=== PATIENT | female | born 1980 | race Caucasian/White ===

== ENCOUNTER 2016-06-22 15:00 | Inpatient (IN) | payer MEDICAID, OTHER ==
[~2016-06-22] VITALS: Ht 160 cm; Wt 91.8 kg
[~2016-06-22 15:00] MED LIST: ARIP10TA14 PO; FLUR15CA14 PO; LURA40 PO; TOPI100 PO
[2016-06-22] MEDS ORDERED: DOXE10 PO (15:13)
[2016-06-22 16:51] LABS: BASOPHILS % (AUTO) 0.5 % (0.0-2.0); EOSINOPHILS % (AUTO) 0.1 % (1.0-6.0); HEMATOCRIT 41.1 % (36-46); LYMPHOCYTES # (AUTO) 1.7 K/uL (1.0-4.8); LYMPHOCYTES % (AUTO) 15.9 % (22.0-44.0); MEAN CORPUSCULAR HEMOGLOBIN 24.5 pg (26.0-34.0); MEAN CORPUSCULAR HGB CONC 31.7 G/dL (31.0-37.0); MEAN CORPUSCULAR VOLUME 77 fL (80-100); MONOCYTES # (AUTO) 0.6 K/uL (0.1-1.0); MONOCYTES % (AUTO) 5.3 % (2.0-9.0); NEUTROPHILS # (AUTO) 8.1 K/uL (1.8-7.7); NEUTROPHILS % (AUTO) 78.2 % (40.0-70.0); PLATELET COUNT (AUTO) 385 K/uL (150-450); RED BLOOD CELL COUNT(AUTO) 5.32 MIL/uL (4.00-5.20); RED CELL DISTRIBUTION WIDTH 14.5 % (11.5-14.5); WHITE BLOOD COUNT (AUTO) 10.4 K/uL (4.5-11.0)
[2016-06-22 17:12] LABS: ANION GAP 12 mmol/L (8-16); CALCIUM, TOTAL 8.5 mg/dL (8.8-10.5); CARBON DIOXIDE 24 mmol/L (22-29); CHLORIDE 101 mmol/L (98-107); CREATININE 0.81 mg/dL (0.60-1.30); GLOMERULAR FILTR. RATE CALC > 60 mL/min (>60); POTASSIUM 3.3 mmol/L (3.5-5.1); SODIUM SERUM 137 mmol/L (136-145); UREA NITROGEN, BLOOD 12 mg/dL (7-18)
[2016-06-22] MEDS ORDERED: LORazepam 2 MG TABLET PO ONE (17:15)
[2016-06-22 17:16] LABS: ALANINE AMINOTRANSFERASE 16 U/L (12-78); ALBUMIN 3.7 g/dL (3.4-5.0); ASPARTATE AMINOTRANSFERASE 8 U/L (15-37); BILIRUBIN,TOTAL 0.6 mg/dL (0.1-1.0); TOTAL PROTEIN, SERUM 7.6 g/dL (6.4-8.2)
[2016-06-22 17:55] LABS: RBC MORPHOLOGY COMMENT ABNORMAL RBC MORPH
[2016-06-22] MEDS ORDERED: HALOPERIDOL 5 MG TABLET PO PRN (18:00)
[2016-06-22] MEDS ORDERED: ZOLPIDEM TARTRATE 10 MG TABLET PO PRN (18:00)
[2016-06-22] MEDS ORDERED: POTASSIUM CHLORIDE 20 MEQ ER TABLET PO ONE (18:15)
[2016-06-23 00:01] VITALS: BP 155/90
[2016-06-23] MEDS ORDERED: INFLUENZA VIRUS VACCINE QVS 2016-17 (3YR+)/PF 60 MCG/0.5 ML SYRINGE IM ONE (01:15)
[2016-06-23 08:18] VITALS: BP 150/100
[2016-06-23] MEDS: LORazepam 2 MG TABLET PO PRN ×2 (08:44→16:07)
[2016-06-23] MEDS: RisperiDONE 2 MG TABLET PO SCH ×2 (10:23→16:07)
[2016-06-23] MEDS: DIVALPROEX SODIUM 500 MG DR TABLET PO SCH ×2 (10:23→16:07)
[2016-06-23 10:30] VITALS: BP 160/78
[2016-06-23] MEDS ORDERED: ACETAMINOPHEN 325 MG TABLET PO PRN (10:30)
[2016-06-23] MEDS ORDERED: LOPERAMIDE HCL 2 MG CAPSULE PO PRN (10:30)
[2016-06-23] MEDS ORDERED: MAG HYDROX/AL HYDROX/SIMETH ES 30 ML SUSPENSION UDCUP PO PRN (10:30)
[2016-06-23] MEDS ORDERED: PETROLATUM,WHITE 71 GM JELLY TP PRN (10:30)
[2016-06-23] MEDS ORDERED: MAGNESIUM HYDROXIDE SUSPENSION 30 ML UDCUP PO PRN (10:30)
[2016-06-23] MEDS ORDERED: CloNIDine HCL 0.1 MG TABLET PO PRN (10:30)
[2016-06-23] MEDS ORDERED: ONDANSETRON HCL 4 MG TABLET PO PRN (10:30)
[2016-06-23] MEDS ORDERED: BENZOCAINE/MENTHOL LOZENGE MM PRN (10:30)
[2016-06-23] MEDS ORDERED: ALBUTEROL SULFATE HFA 90 MCG/PUFF 8 GM INHALER IH PRN (10:30)
[2016-06-23] MEDS ORDERED: IBUPROFEN 600 MG TABLET PO PRN (10:30)
[2016-06-23] MEDS ORDERED: BACITRACIN 28.4 GM OINTMENT TP PRN (10:30)
[2016-06-23 13:30] VITALS: BP 150/96
[2016-06-23 16:18] VITALS: BP 179/93
[2016-06-23 17:05] VITALS: BP 143/90
[2016-06-24 06:20] VITALS: BP 140/85
[2016-06-24 08:33] VITALS: BP 150/104
[2016-06-24] MEDS: LISINOPRIL 10 MG TABLET PO SCH (08:45)
[2016-06-24] MEDS: RisperiDONE 2 MG TABLET PO SCH ×2 (08:45→16:24)
[2016-06-24] MEDS: DIVALPROEX SODIUM 500 MG DR TABLET PO SCH ×2 (08:45→16:24)
[2016-06-24 08:48] LABS: CHOL/HDL RATIO 3.7 (3.9-5.7); POTASSIUM 4.1 mmol/L (3.5-5.1); THYROID STIMULATING HORMONE 1.74 uIU/mL (0.36-3.74)
[2016-06-24 16:13] VITALS: BP 146/87
[2016-06-24] MEDS: LORazepam 2 MG TABLET PO PRN (16:24)
[2016-06-24 17:25] VITALS: BP 143/84
[2016-06-25] MEDS: RisperiDONE 2 MG TABLET PO SCH ×2 (08:32→16:04)
[2016-06-25] MEDS: DIVALPROEX SODIUM 500 MG DR TABLET PO SCH ×2 (08:32→16:04)
[2016-06-25] MEDS: LISINOPRIL 10 MG TABLET PO SCH (08:32)
[2016-06-25] MEDS: LORazepam 2 MG TABLET PO PRN ×2 (08:37→16:04)
[2016-06-25 08:50] VITALS: BP 121/66
[2016-06-25 16:36] VITALS: BP 152/98
[2016-06-25 17:31] VITALS: BP 142/88
[2016-06-26 08:40] VITALS: BP 151/105
[2016-06-26] MEDS: LISINOPRIL 10 MG TABLET PO SCH (09:12)
[2016-06-26] MEDS: RisperiDONE 2 MG TABLET PO SCH ×2 (09:12→16:22)
[2016-06-26] MEDS: DIVALPROEX SODIUM 500 MG DR TABLET PO SCH ×2 (09:12→16:22)
[2016-06-26] MEDS: LORazepam 2 MG TABLET PO PRN ×2 (09:12→17:42)
[2016-06-26 17:02] VITALS: BP 142/86
[2016-06-27 01:05] VITALS: BP 158/100
[2016-06-27 08:56] VITALS: BP 141/98
[2016-06-27] MEDS: DIVALPROEX SODIUM 500 MG DR TABLET PO SCH (09:17)
[2016-06-27] MEDS: LISINOPRIL 10 MG TABLET PO SCH (09:17)
[2016-06-27] MEDS: RisperiDONE 2 MG TABLET PO SCH (09:17)
[2016-06-27] MEDS ORDERED: RISP2 PO (14:05)
[2016-06-27] MEDS ORDERED: DIVA500T35 PO (14:05)
[2016-06-27] MEDS ORDERED: LISI-662 PO (14:06)
[2016-06-28] MEDS ORDERED: LISINOPRIL 20 MG TABLET PO SCH (09:00)
== END 2016-06-27 15:30 | disposition home or self-care (01) | DRG 750 ==
LOC: EMS 15:02 → EEVIPCON 15:02 → B3A 21:15
PROVIDERS: ADMIT Psychiatry & Neurology Psychiatry; ATTEND Psychiatry & Neurology Psychiatry
PROC: 3E0234Z Introduction of Serum, Toxoid and Vaccine into Muscle, Percutaneous Approach (ICD-10-PCS; principal; 2016-06-23)
DX: F25.9 Schizoaffective disorder, unspecified (principal); E83.51 Hypocalcemia; I10 Essential (primary) hypertension; E87.6 Hypokalemia; E66.9 Obesity, unspecified; F31.9 Bipolar disorder, unspecified; K59.00 Constipation, unspecified; G47.00 Insomnia, unspecified; Z91.14 Patient's other noncompliance with medication regimen; Z79.899 Other long term (current) drug therapy; Z68.35 Body mass index [BMI] 35.0-35.9, adult; Z23 Encounter for immunization
CPT/HCPCS: 82306; 84132; 84443; 90471; 99285; G0480